=== PATIENT | male | born 1985 | race Caucasian/White ===

== ENCOUNTER 2016-09-05 11:39 | Emergency (ER) | payer OTHER ==
[2016-09-05 11:43] VITALS: RESP 16
[2016-09-05] MEDS ORDERED: TDAP ADULT 0.5 ML INJ (BOOSTRIX) IM ONE (12:25)
--- NOTE | 2016-09-05 12:27 | EDPHY ---
H & P Time Seen by Provider: 09/05/16 12:17 HPI/ROS: This is a 31-year-old male presenting to emergency department from assisted. Report given patient was combative slipped and fell and feces hit side of head on a metal chair. No LOC reported, patient AAox3. [employer] officers at bedside, patient restrained in chair. Patient states fell hit head but did not pass out. REVIEW OF SYSTEMS: Constitutional: No fever Eyes: No blurred vision ENT: No sore throat Respiratory: No cough Cardiac: No chest pain Gastrointestinal: No no abdomen pain no nausea vomiting Musculoskeletal: Reports Wrist pain from being restrained Skin: No rash, Positive head laceration Neurological: No headache or dizziness Smoking Status: Current every day smoker Physical Exam: CONSTITUTIONAL: patient appeared well nourished, non-ill appearing and normally developed. No acute distress. Vital signs as documented. HEENT: 3 cm scalp laceration behind left ear, bleeding controlled PERRLA. EOMI. No tongue lacerations lip lacerations NECK: Supple, no C-spine vertebral tenderness, FROM without pain RESP: Non-labored resp effort, airway patent, CTAB CARDIAC: RRR w/o murmur, sid. GI: Abd soft NTTP NEURO: AAOx3 CNII-XII intact EXTREMITIES: patient restraint by correctional personal. still able to move extremities without pain . Positive cms intact SKIN: Warm and dry PSYCH: Flat affect, calm, no distress Constitutional: Initial Vital Signs Temperature (C) 36.4 C 09/05/16 11:41 Heart Rate 115 H 09/05/16 11:41 Respiratory Rate 16 09/05/16 11:41 Blood Pressure 124/100 H 09/05/16 11:41 O2 Sat (%) 98 09/05/16 11:41 O2 Delivery Mode Room Air Allergies/Adverse Reactions: No Known Allergies Allergy (Unverified 09/05/16 11:40) Home Medications: Medication Instructions Recorded NK [No Known Home Meds] 09/05/16 Medical Decision Making Procedures: Procedure: Laceration repair. Verbal consent was obtained from the patient. 3 cm laceration on the left side of occupital. The wound was irrigated. There were no deep structures involved. 0.5% bupivacaine 5 mL used, the wound was repaired using 8 kodi. The procedure was performed by myself. A dressing was applied by [facility] ED Course/Re-evaluation: Discussed plan of care: Tetanus shot was given, local infiltrate was used using 0.5% bupivacaine, wound irrigation, wound was repaired using 8 kodi. Patient discharged back to assisted with head injury precautions and wound care. Differential Diagnosis: Differential diagnosis considered but not limited to foreign body laceration, ear laceration, and concussion - Data Points Medications Given: Discontinued Medications Diphtheria/Tetanus/Acell Pertussis (Boostrix) 0.5 ml IM .ONCE ONE Stop: 09/05/16 12:26 Last Admin: 09/05/16 13:11 Dose: 0.5 ml Departure - Departure Disposition: Home, Routine, Self-Care Clinical Impression: Scalp laceration Qualifiers: Encounter type: initial encounter Qualified Code(s): S01.01XA - Laceration without foreign body of scalp, initial encounter Condition: Good Instructions: Laceration (ED), Staple Care (ED) Additional Instructions: No imaging needed. Patient medically care to go back to assisted with head injury precautions. Eight kodi were placed for laceration closure. Monitor for any signs and symptoms of infection such as: redness swelling, drainage or fevers Referrals: NONE *PRIMARY CARE P,. [Primary Care Provider] - As per Instructions [facility],. [Clinic] - As per Instructions
[2016-09-05 13:24] VITALS: BP 123/83; PULSE 89; TEMP 98.1; O2SAT 96
== END 2016-09-05 13:26 | disposition home or self-care (01) ==
PROC: 0HQ0XZZ Repair Scalp Skin, External Approach (ICD-10-PCS; principal; 2016-09-05)
DX: S01.01XA Laceration without foreign body of scalp, initial encounter (principal); F17.200 Nicotine dependence, unspecified, uncomplicated; Z23 Encounter for immunization; W01.198A Fall on same level from slipping, tripping and stumbling with subsequent striking against other object, initial encounter; Y92.149 Unspecified place in prison as the place of occurrence of the external cause